=== PATIENT | male | born 2000 | race Caucasian/White ===

== ENCOUNTER 2018-02-18 21:40 | Emergency (ER) | payer SELFPAY, BC ==
[2018-02-18 22:06] LABS: HEMATOCRIT 46.1 % (42.0-52.0); HEMOGLOBIN 14.6 g/dl (13.5-17.5); MEAN CORPUSCULAR HEMOGLOBIN 27.8 pg (27.0-33.0); MEAN CORPUSCULAR HGB CONC 31.7 g/dl (32.0-36.5); MEAN CORPUSCULAR VOLUME 87.6 fl (80.0-96.0); PLATELET COUNT, AUTOMATED 299 10^3/uL (150-450); RED BLOOD COUNT 5.26 10^6/uL (4.30-6.10); RED CELL DISTRIBUTION WIDTH 12.5 % (11.5-14.5); WHITE BLOOD COUNT 7.7 10^3/uL (4.0-10.0)
[2018-02-18 22:35] LABS: AMPHETAMINES LEVEL URINE NEGATIVE (NEGATIVE); BARBITURATES URINE NEGATIVE (NEGATIVE); BENZODIAZEPINES URINE NEGATIVE (NEGATIVE); CANNABINOIDS URINE NEGATIVE (NEGATIVE); COCAINE METABOLITE URINE NEGATIVE (NEGATIVE); METHADONE URINE NEGATIVE (NEGATIVE); OPIATES URINE NEGATIVE (NEGATIVE); PHENCYCLIDINE URINE NEGATIVE (NEGATIVE)
[2018-02-18 22:59] LABS: ACETAMINOPHEN LEVEL < 2.0 UG/ML (10.0-30.0); ALBUMIN 3.8 GM/DL (3.2-5.2); ALBUMIN/GLOBULIN RATIO 1.03 (1.00-1.93); ALKALINE PHOSPHATASE 84 U/L (45-117); ALT/SGPT 68 U/L (12-78); ANION GAP 8 MEQ/L (8-16); AST/SGOT 35 U/L (7-37); BILIRUBIN,DIRECT < 0.1 MG/DL (0.0-0.2); BILIRUBIN,TOTAL 0.3 MG/DL (0.2-1.0); BLOOD UREA NITROGEN 13 MG/DL (7-18); CALCIUM LEVEL 8.6 MG/DL (8.5-10.1); CARBON DIOXIDE LEVEL 26 MEQ/L (21-32); CHLORIDE LEVEL 111 MEQ/L (98-107); CREATININE FOR GFR 0.89 MG/DL (0.70-1.30); ETHYL ALCOHOL (ETHANOL) < 0.003 % (0.000-0.010); GLUCOSE, FASTING 93 MG/DL (70-100); SALICYLATE LEVEL < 1.7 MG/DL (5.0-30.0); SODIUM LEVEL 145 MEQ/L (136-145); THYROID STIMULATING HORMONE 0.923 uIU/ML (0.463-3.98); TOTAL PROTEIN 7.5 GM/DL (6.4-8.2)
== END 2018-02-18 23:54 | disposition home or self-care (01) ==
LOC: M ED 21:40
DX: F33.9 Major depressive disorder, recurrent, unspecified (principal); Z91.5 Personal history of self-harm
CPT/HCPCS: G0480

== ENCOUNTER → 2018-07-28 | Outpatient (REF) | payer BC | LOC: M LAB REF 12:29 | PROVIDERS: ATTEND Physician Assistant Medical | DX: J02.9 Acute pharyngitis, unspecified (principal) ==

== ENCOUNTER 2019-01-27 22:56 | Emergency (ER) | payer BC, SELFPAY ==
[~2019-01-27] VITALS: Ht 170.2 cm; Wt 140.9 kg
[2019-01-27 23:09] VITALS: BP 141/92
== END 2019-01-28 00:39 | disposition home or self-care (01) ==
LOC: M ED 22:56
DX: F41.8 Other specified anxiety disorders (principal)

== ENCOUNTER 2019-04-23 01:54 | Emergency (ER) | payer SELFPAY ==
[~2019-04-23] VITALS: Ht 172.7 cm; Wt 140.9 kg
[2019-04-23 01:54] VITALS: BP 133/77
[2019-04-23 02:35] LABS: HEMATOCRIT 46.2 % (42.0-52.0); HEMOGLOBIN 14.8 g/dl (13.5-17.5); MEAN CORPUSCULAR HEMOGLOBIN 28.5 pg (27.0-33.0); MEAN CORPUSCULAR VOLUME 88.8 fl (80.0-96.0); PLATELET COUNT, AUTOMATED 266 10^3/uL (150-450); WHITE BLOOD COUNT 5.7 10^3/uL (4.0-10.0)
[2019-04-23 03:07] LABS: BLOOD UREA NITROGEN 13 MG/DL (7-18); CARBON DIOXIDE LEVEL 27 MEQ/L (21-32); CHLORIDE LEVEL 109 MEQ/L (98-107); CREATININE FOR GFR 1.01 MG/DL (0.70-1.30); GLOMERULAR FILTRATION RATE > 60.0 (>60); GLUCOSE, FASTING 100 MG/DL (70-100); SODIUM LEVEL 144 MEQ/L (136-145)
[2019-04-23 03:08] LABS: ACETAMINOPHEN LEVEL < 2.0 UG/ML (10.0-30.0); ALBUMIN 4.1 GM/DL (3.2-5.2); ALT/SGPT 35 U/L (12-78); BILIRUBIN,DIRECT 0.1 MG/DL (0.0-0.2); BILIRUBIN,TOTAL 0.7 MG/DL (0.2-1.0); ETHYL ALCOHOL (ETHANOL) < 0.003 % (0.000-0.010); SALICYLATE LEVEL < 1.7 MG/DL (5.0-30.0); TOTAL PROTEIN 7.4 GM/DL (6.4-8.2)
[2019-04-23 03:32] LABS: AMPHETAMINES LEVEL URINE NEGATIVE (NEGATIVE); BARBITURATES URINE NEGATIVE (NEGATIVE); BENZODIAZEPINES URINE NEGATIVE (NEGATIVE); CANNABINOIDS URINE NEGATIVE (NEGATIVE); COCAINE METABOLITE URINE NEGATIVE (NEGATIVE); METHADONE URINE NEGATIVE (NEGATIVE); OPIATES URINE NEGATIVE (NEGATIVE); PHENCYCLIDINE URINE NEGATIVE (NEGATIVE)
== END 2019-04-23 04:53 | disposition home or self-care (01) ==
LOC: M ED 01:54
DX: F32.9 Major depressive disorder, single episode, unspecified (principal)
CPT/HCPCS: 36415; 80048; 80076; 80307; 84443; 85027; 99284; G0480

== ENCOUNTER 2019-08-20 05:16 | Emergency (ER) | payer SELFPAY ==
[~2019-08-20] VITALS: Ht 172.7 cm; Wt 140.9 kg
[2019-08-20 05:56] LABS: HEMATOCRIT 44.3 % (42.0-52.0); HEMOGLOBIN 14.2 g/dl (13.5-17.5); MEAN CORPUSCULAR HGB CONC 32.1 g/dl (32.0-36.5); MEAN CORPUSCULAR VOLUME 87.4 fl (80.0-96.0); PLATELET COUNT, AUTOMATED 271 10^3/uL (150-450); RED BLOOD COUNT 5.07 10^6/uL (4.30-6.10); WHITE BLOOD COUNT 7.8 10^3/uL (4.0-10.0)
[2019-08-20 06:15] LABS: AMPHETAMINES LEVEL URINE NEGATIVE (NEGATIVE); BARBITURATES URINE NEGATIVE (NEGATIVE); BENZODIAZEPINES URINE NEGATIVE (NEGATIVE); CANNABINOIDS URINE NEGATIVE (NEGATIVE); COCAINE METABOLITE URINE NEGATIVE (NEGATIVE); METHADONE URINE NEGATIVE (NEGATIVE); OPIATES URINE NEGATIVE (NEGATIVE); PHENCYCLIDINE URINE NEGATIVE (NEGATIVE)
[2019-08-20 06:27] LABS: ACETAMINOPHEN LEVEL < 2.0 UG/ML (10.0-30.0); ALBUMIN 3.6 GM/DL (3.2-5.2); ALT/SGPT 24 U/L (12-78); BILIRUBIN,DIRECT 0.1 MG/DL (0.0-0.2); BILIRUBIN,TOTAL 0.4 MG/DL (0.2-1.0); BLOOD UREA NITROGEN 18 MG/DL (7-18); CALCIUM LEVEL 8.5 MG/DL (8.5-10.1); CARBON DIOXIDE LEVEL 26 MEQ/L (21-32); CHLORIDE LEVEL 112 MEQ/L (98-107); ETHYL ALCOHOL (ETHANOL) < 0.003 % (0.000-0.010); GLOMERULAR FILTRATION RATE > 60.0 (>60); GLUCOSE, FASTING 100 MG/DL (70-100); SALICYLATE LEVEL < 1.7 MG/DL (5.0-30.0); SODIUM LEVEL 144 MEQ/L (136-145); TOTAL PROTEIN 7.3 GM/DL (6.4-8.2)
--- NOTE | 2019-08-20 11:09 | MHCRPDOC ---
[facility] Consultation Consultation DATE OF CONSULTATION: 08/20/19 CONSULTATION REQUESTED BY: ED REASON FOR CONSULTATION: SI RELEVANT HISTORY: Pt is a 19y/o CM with a history of depression who was brought to ED after he had been at [facility] and began to feel anxious with thoughts of SI. Pt seen this am stating the he has fleeting thoughts of SI for several years that have been more frequent since his mother due to pancreatic cancer 10/2018. He states he also recently found out his father has lung cancer and is going thru a break-up with a girlfriend he moved in with a few months ago. States that he's been feeling depressed and that due to lack of health insurance benefits he has not been able to go to outpatient therapy and med follow-up. States that when he went in the past it was very beneficial for him. He denies any plan or intent for suicide and has never had a plan or intent. States he does not want to harm himself. States he feels safe to go home and has a close friend he can call if he feels he it would be best for him to be around someone else despite social distancing due to pandemic. PAST PSYCHIATRIC HISTORY: depression, used to be in outpatient psychiatric care but no longer has those insurance benefits denies previous psych admission or SA PAST MEDICAL HISTORY: per ED FAMILY HISTORY: Mother: secondary pancreatic cancer Father: lung cancer PERSONAL AND SOCIAL HISTORY: The patient was born and raised in [place]. Resides in: [place] alone Marital Status: S Single Children: no Employment: [employer] SUBSTANCE ABUSE HISTORY: denies LEGAL HISTORY: . denies MENTAL STATUS EXAMINATION: Patient is a 19-year old male, who is calm and cooperative Speech is reg rate/rhythm/volume Language skills are good Thought processes including: linear and logical Thought content: fleeting SI, denies plan/intent. States he does not want to kill himself. Denies HI. Future oriented Abstract reasoning, and computation: intact Description of associations: appropriate Description of abnormal or psychotic thoughts: denies Judgment: good Insight: good Orientation to x3 Recent and remote memory: intact Attention span and concentration: good Language: appropriate Fund of knowledge: good Mood: "better" Affect: fatigued but euthymic DIAGNOSIS: 1. Depression unspecified 2. Complicated Bereavement PLAN: 1. d/c home with outpatient therapy and psych follow-up. Vital Signs Vital Signs Date Time Temp Pulse Resp B/P (MAP) Pulse Ox O2 Delivery O2 Flow Rate FiO2 08/20/19 05:20 98.1 85 20 147/83 99 Room Air Laboratory Data 24H Labs Laboratory Tests 2 08/20/19 05:44: Nucleated Red Blood Cells % (auto) 0.0, Anion Gap 6L, Glomerular Filtration Rate > 60.0, Calcium Level 8.5, Total Bilirubin 0.4, Direct Bilirubin 0.1, Aspartate Amino Transf (AST/SGOT) 19, Alanine Aminotransferase (ALT/SGPT) 24, Alkaline Phosphatase 90, Total Protein 7.3, Albumin 3.6, Albumin/Globulin Ratio 0.97L, Thyroid Stimulating Hormone (TSH) 1.120, Salicylates Level < 1.7L, Urine Opiates Screen NEGATIVE, Urine Methadone Screen NEGATIVE, Acetaminophen Level < 2.0L, Urine Barbiturates Screen NEGATIVE, Urine Phencyclidine Screen NEGATIVE, Urine Amphetamines Screen NEGATIVE, Urine Benzodiazepines Screen NEGATIVE, Urine Cocaine Metabolite Screen NEGATIVE, Urine Cannabinoids Screen NEGATIVE, Ethyl Alcohol Level < 0.003 Home Medications No Active Prescriptions or Reported Meds Allergies Coded Allergies: No Known Allergies (Unverified , 08/20/19) JEANINE LAU DO Aug 20, 2019 11:09
[2019-08-20 12:41] VITALS: BP 137/81
== END 2019-08-20 12:46 | disposition home or self-care (01) ==
LOC: M ED 05:16
DX: F43.20 Adjustment disorder, unspecified (principal); F33.9 Major depressive disorder, recurrent, unspecified; F90.9 Attention-deficit hyperactivity disorder, unspecified type
CPT/HCPCS: 36415; 80048; 80076; 80307; 84443; 85027; 99284; G0480

== ENCOUNTER 2020-12-01 02:26 | Inpatient (IN) | payer BC, SELFPAY ==
[~2020-12-01] VITALS: Ht 172.7 cm; Wt 145.4 kg
[2020-12-01 04:07] LABS: HEMATOCRIT 46.3 % (42.0-52.0); HEMOGLOBIN 14.9 g/dl (13.5-17.5); MEAN CORPUSCULAR HGB CONC 32.2 g/dl (32.0-36.5); PLATELET COUNT, AUTOMATED 307 10^3/uL (150-450); RED BLOOD COUNT 5.32 10^6/uL (4.30-6.10); WHITE BLOOD COUNT 7.9 10^3/uL (4.0-10.0)
[2020-12-01 04:27] LABS: ACETAMINOPHEN LEVEL < 2.0 UG/ML (10.0-30.0); ALBUMIN 3.8 GM/DL (3.2-5.2); ALT/SGPT 44 U/L (12-78); BILIRUBIN,DIRECT < 0.1 MG/DL (0.0-0.2); BILIRUBIN,TOTAL 0.4 MG/DL (0.2-1.0); BLOOD UREA NITROGEN 13 MG/DL (7-18); CALCIUM LEVEL 8.9 MG/DL (8.5-10.1); CARBON DIOXIDE LEVEL 25 MEQ/L (21-32); CHLORIDE LEVEL 111 MEQ/L (98-107); CREATININE FOR GFR 0.79 MG/DL (0.70-1.30); ETHYL ALCOHOL (ETHANOL) < 0.003 % (0.000-0.010); GLOMERULAR FILTRATION RATE > 60.0 (>60); GLUCOSE, FASTING 105 MG/DL (70-100); POTASSIUM SERUM 4.1 MEQ/L (3.5-5.1); SALICYLATE LEVEL < 1.7 MG/DL (5.0-30.0); SODIUM LEVEL 143 MEQ/L (136-145); TOTAL PROTEIN 7.6 GM/DL (6.4-8.2)
[2020-12-01 05:21] LABS: AMPHETAMINES LEVEL URINE NEGATIVE (NEGATIVE); BARBITURATES URINE NEGATIVE (NEGATIVE); BENZODIAZEPINES URINE NEGATIVE (NEGATIVE); CANNABINOIDS URINE NEGATIVE (NEGATIVE); COCAINE METABOLITE URINE NEGATIVE (NEGATIVE); METHADONE URINE NEGATIVE (NEGATIVE); OPIATES URINE NEGATIVE (NEGATIVE); PHENCYCLIDINE URINE NEGATIVE (NEGATIVE)
[2020-12-02 11:36] LABS: RSV AMPLIFICATION NEGATIVE (NEGATIVE)
[2020-12-02] MEDS ORDERED: MAALOX 30 ML SUSP *UDC PO PRN (15:25)
[2020-12-02] MEDS ORDERED: hydrOXYzine 25 MG TAB PO PRN (15:25)
[2020-12-02] MEDS ORDERED: ACETAMINOPHEN TAB 650MG DOSE (2X325MG) PO PRN (15:25)
[2020-12-02] MEDS ORDERED: MOM 30ML SUSPENSION UDC PO PRN (15:25)
[2020-12-02] MEDS ORDERED: traZODone 50 MG TAB PO PRN (15:25)
[2020-12-02 20:22] VITALS: BP 123/82
[2020-12-03 06:27] VITALS: BP 130/76
[2020-12-03] MEDS: SERTRALINE HCL 50 MG TAB PO SCH (09:33)
--- NOTE | 2020-12-03 12:32 | HPEPDOC ---
[facility] Medical History & Physical Date of Admission Dec 03, 2020 Date of Service: Dec 03, 2020 Attending Physician: MINNIE ESPINOZA DO History and Physical CHIEF COMPLAINT: Suicidal ideations HISTORY OF PRESENT ILLNESS: Patient is a 20-year-old male who presented to the emergency department straight from work yesterday after making suicidal comments. Patient does have a history of suicidal ideations with suicide attempt in the past. Patient has been being treated by outpatient behavioral health however, he has not been in some time. Patient was admitted into the inpatient mental health unit for depressive disorder. Hospitalist were consulted. Patient's only complaint is when he walks either barefoot or with socks on his right foot will bother him. Patient states that there is a pain in the third, fourth, and fifth digits of his right foot. Patient denies any injury that he knows about. Patient states that he is in no pain while he is sitting or resting. Patient states that this just started. Patient states that he is not in pain when he is wearing shoes. Patient is unsure if there is any wound or any other injury on the foot. Patient has no other complaints at this time. PAST MEDICAL HISTORY: 1. Depression with suicidal ideation with prior suicide attempt. PAST SURGICAL HISTORY: Patient denies any surgical history SOCIAL HISTORY: Patient is a former smoker and does not drink alcohol. Patient states that he recently took a THC-containing gummy but did not feel anything so he is unsure of whether or not it actually contain THC. Patient denies any other illicit drug use. Patient works at [employer] at night. FAMILY HISTORY: Patient believes there may be hypertension on his mother side ALLERGIES: Please see below. REVIEW OF SYSTEMS: General: Patient denies fevers HEENT: Patient denies headaches Cardiovascular: Patient denies chest pain Respiratory: Patient denies shortness of breath, cough GI: Patient denies abdominal pain, nausea, vomiting, diarrhea : Patient denies increased frequency or pain with urination Extremities: Patient denies swelling or pain in extremities Neurological: Patient denies numbness or tingling in legs Skin: Patient denies any new rashes or lesions. Hematologic: Patient denies any easy bruising. Lymphatic: Patient denies any lumps lumps or bumps in neck, axilla, or groin HOME MEDICATIONS: Please see below. PHYSICAL EXAMINATION: VITAL SIGNS: Temperature 98.8, pulse 80, respiratory rate 18, blood pressure 130/76, pulse oximetry 98% on room air. General: Alert and oriented male patient who was sitting in the chair in his room on the inpatient mental health unit when I walked in. Patient did not appear to be in any acute distress. HEENT: Normocephalic, atraumatic, moist mucous membranes. Neck: No lymphadenopathy or thyromegaly Cardiac: Regular rate and rhythm, no murmurs, normal S1, normal S2 Pulm: Clear to auscultation bilaterally. No wheezes, rhonchi, rales Abd: Nondistended, nontender to palpation, normal bowel sounds Ext: No edema bilateral lower extremities Skin: Skin of the head, neck, arms, legs, feet, and abdomen were examined did not show any evidence of rashes or lesions. Musculoskeletal: Patient is able to move the toes on the bilateral feet without any pain. There is no pain to palpation. No nodules were felt on the right foot. No lesions, swelling, redness, or heat coming from the right foot. LABORATORY DATA: See below. IMAGING: No imaging has been performed MICROBIOLOGY: Please see below. ASSESSMENT: Patient is a 20-year-old male who presented to the emergency department from work after making suicidal statements who was admitted into the inpatient mental health unit for treatment of depression. . PLAN: 1. Depression with suicidal ideations. Patient denies currently being suicidal. Patient treatment per psychiatry. 2. Toe pain, right foot. I advised the patient to see if he can get some shoes however, nursing staff states that boots are not allowed on the unit and that the patient only has boots at home. I did advise the patient to try to stay off the foot if it is bothering him or try to walk in a different way as to take pressure off the outside of his right foot. I advised the patient if the pain is really bothering him to take some Tylenol. I do not believe x-rays are indicated at this time as there is no acute swelling or pain to palpation and the patient is able to move the foot without any pain. I did advise that the patient's pain either continues or worsens to let the nurse know to contact hospitalist. Disposition: Patient will be followed by psychiatry and if there are any issues that arise, please do not hesitate to contact covering hospitalist. Thank you for involving us in the care of this patient. Please reconsult if there is any issues. Vital Signs Vital Signs Date Time Temp Pulse Resp B/P (MAP) Pulse Ox O2 Delivery O2 Flow Rate FiO2 12/03/20 06:27 98.8 106 18 130/76 (94) 98 Room Air Home Medications No Active Prescriptions or Reported Meds Allergies Coded Allergies: No Known Allergies (Unverified , 08/20/19) A-FIB/CHADSVASC A-FIB History Current/History of A-Fib/PAF?: No MINNIE ESPINOZA DO Dec 03, 2020 12:32
--- NOTE | 2020-12-03 20:19 | WAPSY-FUP ---
[facility] PSYCH FOLLOWUP ASSESSMENT DATE OF ADMISSION: 12/02/2020 HISTORY OF PRESENT ILLNESS: This is a 20-year-old patient who was admitted after he was brought by the police. He was overheard by a co-worker stating he wanted to kill himself. A market asset protection manager called the police and he told the police that he was suicidal too. The patient stated that he has not felt this depressed since he attempted suicide when he was 14 years old. Actually at the time he grabbed a gun but his family removed the gun from him before he was able to make any attempt. He states that he thinks a lot about suicide whenever he gets too deep into his thoughts. He states that he thinks that he has depression on most days. He states his mood is about a 5 out of 10 with a closer to ten with the most depressed. He says occasionally he has some feelings of hopelessness and helplessness, although he states he knows he has a lot of support in his fianc and [id number] and his boss at work. He feels that he can talk to all of these people. He states that he has had psychiatric treatment before but he thinks everything is worse since his mother due to pancreatic cancer a year ago, and within the same year he stated that his stepfather who raised him since he was [age] and two aunts and one uncle all . He also states that he has a chronic sleep problem. The patient states that he has had treatment going all the way back to when he was 13 years old, and I was able to review those records from 2013. He was seen by Dr. Bangura and he was having trouble with being bullied at school and he was diagnosed with ADHD, combined type, depressive disorder, not otherwise specified and he was treated with medications for ADHD with Concerta. He continued treatment until [address] [facility] but stopped treatment when his insurance ran out. He was treated with Vyvanse 20 mg, Geodon 20 mg q. h.s. for sleep and mood stability and Zoloft 100 mg q. daily, but actually when he was not seen at the clinic in 2017, he was being diagnosed with major depressive disorder, generalized anxiety disorder and ADHD. I did not elicit any hypomanic or manic-like symptoms or OCD or panic-like symptoms in this patient. PAST PSYCHIATRIC HISTORY: This is as noted above. He actually has no history of any suicidal attempt but has made a gesture in the past with a gun as noted above, and I believe that this is his first psychiatric hospitalization. FAMILY HISTORY: There is no psychiatric illness in the family or suicides in the family. SUBSTANCE ABUSE HISTORY: The patient's toxicology was negative for any drugs and there is no history of any trouble with alcohol or drugs. ABUSE HISTORY: The patient states that he was bullied in school. There is no other abuse history and I did not elicit PTSD symptoms. REVIEW OF SYSTEMS: VITAL SIGNS: Blood pressure 130/78, pulse equals 106, respiration equals 18. GENERAL APPEARANCE: He did not appear to be in any apparent distress. NEUROMUSCULAR SYSTEM: His gait was normal and there were no involuntary movements in his extremities noted. All other systems were reviewed and found to be negative. MENTAL STATUS EXAMINATION: This patient is alert and oriented times three. He is pleasant and cooperative, verbally spontaneous. Psychomotor activity is decreased. Eye contact is fair. Mood is depressed. Affect is appropriate. There is no formal thought disorder noted. He is denying suicidal ideations today or homicidal ideations. Concentration is fair. Memory intact. Insight and judgment are fair. DIAGNOSIS: 1. Unspecified depressive disorder. 2. History of ADHD. 3. Rule out major depressive disorder. TREATMENT PLAN: So at this point the patient has been started on Zoloft 50 mg q. daily and so we will continue that and also Trazodone 50 mg q. h.s. p.r.n. for insomnia and we will continue to monitor him for continued resolution of suicidal ideations and elevation and stabilization of his mood.
[2020-12-04 06:45] VITALS: BP 142/87
[2020-12-04] MEDS: SERTRALINE HCL 50 MG TAB PO SCH (08:22)
--- NOTE | 2020-12-04 09:27 | MHIPNPDOC ---
[facility] Progress Note Progress Note DATE OF SERVICE: 12/04/20 The patient was admitted after expressing suicidal thoughts to his boss at work. He reports increasing depression for the past 2 weeks especially with the thou ghts of his mother who 2 years ago. Patient denies any psychotic symptoms denies any substance abuse issues and denies any prior history of serious depression. He was considering going to a counseling but was having difficult time getting appointment. He reported that his suicidal thoughts were without any clear plan or intent and does not have any history of suicidal attempt. He stated that he has a lot of support system including his fiance of 2 years and his [id number] who has been like a mother figure to him. He feels much better after his admission and reports that he likes the effect of the Zoloft and is willing to continue the treatment. He is somewhat anxious to be discharged too soon and was told that he could be discharged tomorrow if he remains stable and has safe plan in place. HISTORY:. VITAL SIGNS: See below. NEW TEST RESULTS:. CURRENT MEDICATIONS: See below. MENTAL STATUS EXAMINATION: Patient is a 20-year old male, who is pleasant and cooperative. Speech: Is rational and coherent. Language skills are good. Thought processes including: Relevant. Thought content: Denies any suicidal thoughts. Abstract reasoning, and computa tion: Fair. Description of associations: Organized. Description of abnormal or psychotic thoughts: Denies any paranoia or hallucinations. Judgment: Fair. Insight: [, fair.. Orientation: Well oriented. Recent and remote memory: Unimpaired. Attention span and concentration:. Language:. Fund of knowledge:. Mood: Brighter and animated and denies any serious depression. Affect: Appropriate. DIAGNOSES: 1.. Depressive disorder NOS 2.. 3.. ASSESSMENT: Cooperating with the treatment and maintaining good control MANAGEMENT PLAN: Increase Zoloft 200 mg and arrange for outpatient referral. TIME SPENT: 20 minutes. Vital Signs Vital Signs Date Time Temp Pulse Resp B/P (MAP) Pulse Ox O2 Delivery O2 Flow Rate FiO2 12/04/20 06:45 98.2 104 18 142/87 (105) 98 Room Air Current Medications Current Medications Medications (Trade) Dose Ordered Sig/Gracie Route PRN Reason Start Time Stop Time Status Last Admin Dose Admin Acetaminophen (Tylenol Tab) 650 mg Q6HP PRN PO HEADACHE or MILD DISCOMFORT 12/02/20 15:25 12/03/20 13:55 Al Hydrox/Mg Hydrox/Simethicone (Mylanta) 30 ml Q4HP PRN PO HEARTBURN/INDIGESTION 12/02/20 15:25 Home Med (Med Rec Complete!) ASDIRECTED XX 12/01/20 08:20 12/01/20 08:24 DC Hydroxyzine HCl (Atarax) 25 mg Q6HP PRN PO ANXIETY 12/02/20 15:25 Magnesium Hydroxide (Milk Of Magnesia) 30 ml DAILYPRN PRN PO CONSTIPATION 12/02/20 15:25 Sertraline HCl (Zoloft) 50 mg DAILY PO 12/03/20 09:00 12/04/20 08:22 Trazodone HCl (Desyrel) 50 mg QHSP PRN PO INSOMNIA 12/02/20 15:25 Allergies Coded Allergies: No Known Allergies (Unverified , 08/20/19) JHON ALEXANDER M.D. Dec 04, 2020 09:27
[2020-12-04 17:16] VITALS: BP 138/66
[2020-12-05 06:00] VITALS: BP 115/70
[2020-12-05] MEDS ORDERED: TRAZ-252 PO (07:47)
[2020-12-05] MEDS ORDERED: ZOLO100T PO (07:47)
--- NOTE | 2020-12-05 08:51 | MHDSPDOC ---
[facility] Discharge Summary Discharge Summary DATE OF ADMISSION: Dec 02, 2020 at 15:25 DATE OF DISCHARGE: December 05, 2020 DISCHARGE DIAGNOSES: 1.. Depressive disorder NOS 2.. REASON FOR ADMISSION: 20-year-old man with no prior psychiatric history admitted due to 2 weeks episode of depression and recent thoughts of suicide. He expressed vague suicidal thoughts without any plan or intent to his boss at work who sent him to the emergency room. Patient denies any clear precipitant except that he is has been grieving over the of his mother 2 years ago. He denies any history of psychosis denies a history of sonido and denies any substance abuse issues. CONSULTANTS INVOLVED: TREATMENT AND PROGRESS ON THE UNIT : He was started on Zoloft 50 mg daily increased 100 mg and seen for supportive therapy and lethality evaluation. Patient has fully cooperated with the medicine reports feeling better after his admission and strongly denies any suicidal plan or intent. He has been trying to get into outpatient counseling but not been able to obtain appointment but is willing to accept outpatient therapy and will have an appointment at the time of his discharge.. HOSPITAL COURSE: Patient is fully cooperated with the treatment tolerated Zoloft without complain of any side effect and also slept very well with 50 mg of trazodone. He is maintaining good control and his much more animated and productive and strongly denies any suicidal thoughts. He is anxious to return to his fiance and return to his work and is willing to accept outpatient follow-up DISCHARGE ASSESSMENT: Improved stable and not suicidal MENTAL STATUS EXAMINATION ON DISCHARGE: Patient is a 20-year old male, who is pleasant and cooperative. Speech is rational. Language skills are good. Thought processes including: Coherent. Thought content: No psychotic symptoms and no suicidal thoughts. Abstract reasoning, and computation: Fair. Description of associations: Organized. Description of abnormal or psychotic thoughts: None. Judgment: Fair. Insight: Good. Orientation to well oriented. Recent and remote memory: Unimpaired. Attention span and concentration: Fair. Language:. Fund of knowledge: Average. Mood: Euthymic. Affect: Appropriate. MEDICATIONS ON DISCHARGE: -For. Zoloft 100 mg daily for 7 days with 3 refills -For. Trazodone 50 mg at bedtime as needed for 7 tablets orally -For. PLAN/FOLLOWUP ARRANGEMENTS: Arranged by certified financial planner. The amount of time spent in the coordination of care for this patient was approximately 35 minutes. ETOH/Disorder Med Rx ETOH/DRUG DISORDER RX: N/A Vital Signs/I&Os Vital Signs Date Time Temp Pulse Resp B/P (MAP) Pulse Ox O2 Delivery O2 Flow Rate FiO2 12/05/20 06:00 98.5 107 20 115/70 (85) 97 12/04/20 06:45 Room Air Medications Scheduled Sertraline Hcl (Zoloft) 100 Mg Tablet, 100 MG PO DAILY for depression for 7 Days, #7 Scheduled PRN Trazodone HCl (Trazodone HCl) 50 Mg Tablet, 50 MG PO QHSP PRN for INSOMNIA for 7 Days, #7 Allergies Coded Allergies: No Known Allergies (Unverified , 08/20/19) JHON ALEXANDER M.D. Dec 05, 2020 08:51
[2020-12-05] MEDS ORDERED: SERTRALINE 100 MG TAB PO SCH (09:00)
--- NOTE | 2020-12-08 07:42 | MHHPE ---
DATE OF ADMISSION: 12/02/2020 HISTORY OF PRESENT ILLNESS: This is a 20-year-old patient who was admitted after he was brought by the police. He was overheard by a co-worker stating he wanted to kill himself. A assistant banquet manager called the police and he told the police that he was suicidal too. The patient stated that he has not felt this depressed since he attempted suicide when he was 14 years old. Actually at the time he grabbed a gun but his family removed the gun from him before he was able to make any attempt. He states that he thinks a lot about suicide whenever he gets too deep into his thoughts. He states that he thinks that he has depression on most days. He states his mood is about a 5 out of 10 with a closer to ten with the most depressed. He says occasionally he has some feelings of hopelessness and helplessness, although he states he knows he has a lot of support in his fianc and [id number] and his boss at work. He feels that he can talk to all of these people. He states that he has had psychiatric treatment before but he thinks everything is worse since his mother due to pancreatic cancer a year ago, and within the same year he stated that his stepfather who raised him since he was two and two aunts and one uncle all . He also states that he has a chronic sleep problem. The patient states that he has had treatment going all the way back to when he was 13 years old, and I was able to review those records from 2013. He was seen by Dr. Bangura and he was having trouble with being bullied at school and he was diagnosed with ADHD, combined type, depressive disorder, not otherwise specified and he was treated with medications for ADHD with Concerta. He continued treatment until 2017 at [facility] but stopped treatment when his insurance ran out. He was treated with Vyvanse 20 mg, Geodon 20 mg q. h.s. for sleep and mood stability and Zoloft 100 mg q. daily, but actually when he was not seen at the clinic in 2017, he was being diagnosed with major depressive disorder, generalized anxiety disorder and ADHD. I did not elicit any hypomanic or manic-like symptoms or OCD or panic-like symptoms in this patient. PAST PSYCHIATRIC HISTORY: This is as noted above. He actually has no history of any suicidal attempt but has made a gesture in the past with a gun as noted above, and I believe that this is his first psychiatric hospitalization. FAMILY HISTORY: There is no psychiatric illness in the family or suicides in the family. SUBSTANCE ABUSE HISTORY: The patient's toxicology was negative for any drugs and there is no history of any trouble with alcohol or drugs. ABUSE HISTORY: The patient states that he was bullied in school. There is no other abuse history and I did not elicit PTSD symptoms. REVIEW OF SYSTEMS: VITAL SIGNS: Blood pressure 130/78, pulse equals 106, respiration equals 18. GENERAL APPEARANCE: He did not appear to be in any apparent distress. NEUROMUSCULAR SYSTEM: His gait was normal and there were no involuntary movements in his extremities noted. All other systems were reviewed and found to be negative. MENTAL STATUS EXAMINATION: This patient is alert and oriented times three. He is pleasant and cooperative, verbally spontaneous. Psychomotor activity is decreased. Eye contact is fair. Mood is depressed. Affect is appropriate. There is no formal thought disorder noted. He is denying suicidal ideations today or homicidal ideations. Concentration is fair. Memory intact. Insight and judgment are fair. DIAGNOSIS: 1. Unspecified depressive disorder. 2. History of ADHD. 3. Rule out major depressive disorder. TREATMENT PLAN: So at this point the patient has been started on Zoloft 50 mg q. daily and so we will continue that and also Trazodone 50 mg q. h.s. p.r.n. for insomnia and we will continue to monitor him for continued resolution of suicidal ideations and elevation and stabilization of his mood. BASIM
== END 2020-12-05 12:05 | disposition home or self-care (01) | DRG 753 ==
LOC: M ED 02:26 → M ED INP 12-02 15:25 → M PSY 12-02 20:18
PROVIDERS: ADMIT Psychiatry & Neurology Psychiatry; ATTEND Psychiatry & Neurology Psychiatry
DX: F32.89 Other specified depressive episodes (principal); R45.851 Suicidal ideations; Z91.5 Personal history of self-harm; Z63.4 Disappearance and death of family member; Z20.822 Contact with and (suspected) exposure to COVID-19

== ENCOUNTER → 2021-05-13 | Outpatient (REF) ==
[~2021-05-13] MED LIST: TRAZ-252 PO; ZOLO100T PO
== END ==
LOC: M LABSMTC 09:12
PROVIDERS: ATTEND Pediatrics
DX: Z11.52 Encounter for screening for COVID-19 (principal); Z20.822 Contact with and (suspected) exposure to COVID-19